=== PATIENT | male | born 1955 | race Caucasian/White ===

== ENCOUNTER 2016-11-18 10:44 | Emergency (ER) | payer OTHER ==
[2016-11-18 10:50] VITALS: RESP 18
[2016-11-18] MEDS ORDERED: NS 1,000 ML IV ONE ×2 (11:26→13:28)
--- NOTE | 2016-11-18 12:03 | EDPHY ---
H & P Smoking Status: Current every day smoker Time Seen by Provider: 11/18/16 11:59 HPI/ROS: This is a 60-year-old male presenting to the emergency department complaining of body aches feeling dehydrated. Patient states initial body aches and fever started on Tuesday with decreased appetite. Patient was seen by his PCP yesterday positive for flu was also given a nebulizer treatment to to his oxygen saturation levels being at 93%, he stated he felt a little bit better when he got home yesterday afternoon, but this morning he was feeling increased in fatigue and feeling dehydrated. Patient states he has not taking any over- the-counter medication today, limited fluid intake has not eaten anything this morning due to a decrease in appetite and some nausea. Patient is also reporting he has had intermittent dry cough since Tuesday, patient states he normally smokes 5-10 cigarettes a day but has not been able to smoke over the past few days because the cough has been so bad. Denies any chest pain, he states he does have an albuterol inhaler that he uses on occasion but has not been diagnosed with any respiratory disease. REVIEW OF SYSTEMS: Constitutional: Fever which has resolved, positive fatigue, decreased appetite ENT: No sore throat no ear pain Respiratory: Positive for cough with intermittent shortness of breath Cardiac: No chest pain Gastrointestinal: No abdominal pain but intermittent nausea Skin: No rash Neurological: No headache or dizziness (Elda Arrieta) Constitutional: Initial Vital Signs Temperature (C) 37.1 C 11/18/16 10:46 Heart Rate 77 11/18/16 10:46 Respiratory Rate 18 11/18/16 10:46 Blood Pressure 128/90 H 11/18/16 10:46 O2 Sat (%) 93 11/18/16 10:46 O2 Delivery Mode Room Air Allergies/Adverse Reactions: No Known Allergies Allergy (Verified 11/18/16 10:46) Home Medications: Medication Instructions Recorded Albuterol Sulfate [Proventil Hfa] 6.7 gm IH 11/18/16 Azithromycin [Zithromax] 250 mg PO DAILY #6 tab 11/18/16 predniSONE 50 mg PO DAILY #5 tablet 11/18/16 Medical Decision Making ED Course/Re-evaluation: Discussed plan of care with patient: IV fluids for dehydration, CBC Chem 7 and CXR, patient agree with this plan 1330: Re-evaluation after DuoNeb---> mild scattered wheezing nonlabored respiratory effort 1345: Discussed x-ray and lab findings the patient. Patient does report he is feeling a little bit better since fluids and a DuoNeb treatment 1430: Re-evaluation of patient, well-appearing, nonlabored respiratory effort stable. Discharge home---> discussed discharge instructions with patient ( Elda Arrieta) Differential Diagnosis: Differential diagnosis considered but not limited to pneumonia, pleural effusion pneumothorax (Elda Arrieta) Other Provider: This patient was evaluated and managed by the nurse practitioner. I have reviewed the chart and agree with the findings and plan of care as documented. ( Audra Rodgers) - Data Points Laboratory Results: Laboratory Results 11/18/16 12:15 11/18/16 12:15 Medications Given: Discontinued Medications Acetaminophen (Tylenol) 1,000 mg PO EDNOW ONE Stop: 11/18/16 13:28 Last Admin: 11/18/16 13:34 Dose: 1,000 mg Albuterol/Ipratropium (Duoneb) 3 ml IH EDNOW ONE Stop: 11/18/16 12:42 Last Admin: 11/18/16 12:42 Dose: 3 ml Sodium Chloride (Ns) 1,000 mls @ 0 mls/hr IV ONCE ONE PRN Reason: Wide Open Stop: 11/18/16 11:27 Last Admin: 11/18/16 12:15 Dose: 1,000 mls Sodium Chloride (Ns) 1,000 mls @ 0 mls/hr IV ONCE ONE PRN Reason: Wide Open Stop: 11/18/16 13:29 Last Admin: 11/18/16 13:34 Dose: 1,000 mls Ibuprofen (Motrin) 600 mg PO ONCE ONE Stop: 11/18/16 13:49 Last Admin: 11/18/16 14:06 Dose: 600 mg Departure - Departure Disposition: Home, Routine, Self-Care Clinical Impression: Influenza, Fatigue, Acute bronchitis Condition: Good Instructions: Influenza (ED), Acute Bronchitis (ED) Additional Instructions: 1. Take all medications prescribed 2. You have albuterol inhaler at home to use as directed 3. You can take ibuprofen or Tylenol as needed for fever 4. Stop smoking 5. Bee if any symptoms worsen or become life-threatening return to the ER Referrals: Aggie Ybarra MD [Primary Care Provider] - As per Instructions Prescriptions: Azithromycin [Zithromax] 250 mg PO DAILY #6 tab predniSONE 50 mg PO DAILY #5 tablet
[2016-11-18 12:25] LABS: % IMMATURE GRANULYOCYTES 0.2 % (0.0-1.1); ABSOLUTE IMMATURE GRANULOCYTES 0.01 10^3/uL (0.00-0.10); ADD DIFF? NO; ADD MORPH? NO; ADD SCAN? NO; ATYPICAL LYMPHOCYTE FLAG 30 (0-99); FRAGMENT RBC FLAG 0 (0-99); HEMATOCRIT 46.6 % (40.0-51.0); HEMOGLOBIN 16.3 g/dL (13.7-17.5); LEFT SHIFT FLG 10 (0-99); LIPEMIA HEMOLYSIS FLAG 90 (0-99); MEAN CELL HEMOGLOBIN 31.2 pg (27.9-34.1); MEAN CELL VOLUME 89.3 fL (81.5-99.8); MEAN PLATELET VOLUME 9.8 fL (8.7-11.7); PLATELET CLUMPS FLAG 10 (0-99); PLATELET COUNT 208 10^3/uL (150-400); RED BLOOD CELL COUNT 5.22 10^6/uL (4.40-6.38); RED CELL DISTRIBUTION WIDTH 13.1 % (11.5-15.2)
[2016-11-18] MEDS ORDERED: IPRATROPIUM/ALBUTEROL 3 ML DEYVIAL IH ONE (12:41)
[2016-11-18 12:57] LABS: ANION GAP 10 mEq/L (8-16); CALCIUM 8.7 mg/dL (8.5-10.4); CARBON DIOXIDE 24 mEq/l (22-31); CHLORIDE 99 mEq/L (97-110); GLOMERULAR FILTRATION RATE > 60; GLUCOSE 78 mg/dL (70-100); POTASSIUM 4.4 mEq/L (3.5-5.2); SODIUM 133 mEq/L (134-144)
[2016-11-18] MEDS ORDERED: ACETAMINOPHEN 500 MG TAB PO ONE (13:27)
[2016-11-18] MEDS ORDERED: IBUPROFEN 600 MG TAB PO ONE (13:48)
[2016-11-18 14:34] VITALS: BP 145/83; PULSE 83; TEMP 99.1; O2SAT 96
== END 2016-11-18 14:33 | disposition home or self-care (01) ==
DX: J11.1 Influenza due to unidentified influenza virus with other respiratory manifestations (principal); J20.9 Acute bronchitis, unspecified; F17.200 Nicotine dependence, unspecified, uncomplicated

== ENCOUNTER → 2016-12-20 | Outpatient (CLI) | payer OTHER | LOC: BMCIMAGING 16:32 | PROVIDERS: ATTEND Family Medicine | DX: R06.2 Wheezing (principal); F17.210 Nicotine dependence, cigarettes, uncomplicated ==

== ENCOUNTER → 2017-08-26 | Outpatient (CLI) | payer OTHER | LOC: BMCIMAGING 14:45 | PROVIDERS: ATTEND Podiatrist Foot & Ankle Surgery | DX: M19.071 Primary osteoarthritis, right ankle and foot (principal) ==

== ENCOUNTER → 2017-11-21 | Outpatient (CLI) | payer OTHER | LOC: BMCIMAGING 15:29 | PROVIDERS: ATTEND Podiatrist Foot & Ankle Surgery | DX: Z09 Encounter for follow-up examination after completed treatment for conditions other than malignant neoplasm (principal); Z98.890 Other specified postprocedural states ==

== ENCOUNTER → 2017-12-05 | Outpatient (CLI) | payer OTHER | LOC: BMCIMAGING 15:11 | PROVIDERS: ATTEND Podiatrist Foot & Ankle Surgery | DX: Z47.1 Aftercare following joint replacement surgery (principal); Z96.698 Presence of other orthopedic joint implants ==

== ENCOUNTER → 2017-12-23 | Outpatient (CLI) | payer OTHER | LOC: BMCIMAGING 11:24 | PROVIDERS: ATTEND Podiatrist Foot & Ankle Surgery | DX: M79.671 Pain in right foot (principal); Z98.890 Other specified postprocedural states ==

== ENCOUNTER → 2018-07-13 | Outpatient (CLI) | payer OTHER | LOC: BMCIMAGING 14:57 | PROVIDERS: ATTEND Family Medicine | DX: R59.0 Localized enlarged lymph nodes (principal) ==

== ENCOUNTER → 2018-08-09 | Outpatient (CLI) | payer OTHER | LOC: BMCIMAGING 12:14 | PROVIDERS: ATTEND Family Medicine | DX: L76.34 Postprocedural seroma of skin and subcutaneous tissue following other procedure (principal) ==